=== PATIENT | male | born 1950 | race Caucasian/White ===

== ENCOUNTER 2017-12-02 12:13 | Day surgery (SDC) | payer MEDICARE, OTHER ==
[~2017-12-02] VITALS: Ht 185.4 cm; Wt 101.0 kg
[~2017-12-02 12:13] MED LIST: AMIO200 PO; ASPI81EC PO; AZIT250 PO; CENTRUM SILVER1 EAC2 PO; CHOL10002 PO; CIPR500 PO; CYAN1000I PO; CYCL10 PO; Cipro500 MG PO; DIGESTIVE ENZY1 EAC1 PO; FISH OIL 1,2001 EAC3 PO; FLEC100 PO; FLEC50 PO; Flagyl500 MG PO; HYDACE5 PO; LOSA50 PO; METR500 PO; MICROZIDE12.5 M1 PO; NADO40 PO; NADOLOL PO; OMEG1CAP30 PO; OXYACE5T PO; PRED20 PO; PROM25 PO; SERT100 PO; SERT50 PO; TAMS.4ER PO; TELM20 PO; TELM40 PO; TRAM50 PO; TRAZ100 PO; TRAZ50 PO; Tambocor100 MG PO; WARF2.5 PO; WARF5 PO; XARELTO20 MG PO
[2017-12-02] MEDS ORDERED: METO25ER PO (13:29)
[2017-12-02] MEDS ORDERED: CARV6.25 PO (13:30)
[2017-12-02 13:31] LABS: Anion Gap 5 mmol/L (6-16); Blood Urea Nitrogen 18 mg/dL (8-24); Bun/Creatinine Ratio 15.1 (12.0-20.0); CO2, Blood 29 mmol/L (21-32); Calcium, Blood 8.7 mg/dL (8.5-10.1); Chloride, Blood 107 mmol/L (98-108); Creatinine, Blood 1.19 mg/dL (0.60-1.20); Glomerular Filtration Rate >60 (60-); Glucose, Blood 97 mg/dL (70-99); Potassium, Blood 4.6 mmol/L (3.5-5.5); Sodium, Blood 141 mmol/L (136-145)
[2018-05-17] MEDS ORDERED: MAGOXI400 PO (15:53)
[2018-05-17] MEDS ORDERED: CYCL10 PO (15:53)
[2018-05-17] MEDS ORDERED: VITAL REDS (15:54)
== END 2017-12-02 23:13 | disposition home or self-care (01) ==
LOC: MHTC 12:13 → LAB 12:13 → MHTC 23:13
PROVIDERS: Internal Medicine Clinical Cardiac Electrophysiology
PROC: 5A2204Z Restoration of Cardiac Rhythm, Single (ICD-10-PCS; principal; 2017-12-02)
DX: I48.1 Persistent atrial fibrillation (principal); I10 Essential (primary) hypertension
CPT/HCPCS: 36415; 80048; 92960; 93005; 93010; 99152; J7030

== ENCOUNTER 2019-10-12 19:56 | Emergency (ER) | payer MEDICARE, OTHER ==
[~2019-10-12] VITALS: Ht 185.4 cm; Wt 97.5 kg
[~2019-10-12 19:56] MED LIST changes: +CARV6.25 PO; +MAGOXI400 PO; +METO25ER PO; +VITAL REDS
[2019-10-12] MEDS ORDERED: ACYC200 PO (20:04)
[2019-10-12 20:30] LABS: Calcium, Ionized (POC) 1.16 mmol/L (1.10-1.46); Chloride (POC) 102 mmol/L (98-108); Creatinine (POC) 1.4 mg/dL (0.8-1.3); Glucose (ISTAT POC) 96 mg/dL (70-99); Hemoglobin (POC) 13.3 g/dL (13.5-17.5); Potassium (POC) 4.2 mmol/L (3.5-5.5); Sodium (POC) 138 mmol/L (135-148); Total CO2 (POC) 27 mmol/L (21-32)
== END 2019-10-12 23:00 | disposition home or self-care (01) ==
LOC: ER 19:56
PROVIDERS: Physician Assistant
DX: B02.9 Zoster without complications (principal); I10 Essential (primary) hypertension; I48.91 Unspecified atrial fibrillation; F32.9 Major depressive disorder, single episode, unspecified; Z79.899 Other long term (current) drug therapy
CPT/HCPCS: 36415; 70487; 80047; 85014; 99284-25; A9270; J7120; Q9967

== ENCOUNTER → 2020-02-02 | Outpatient (CLI) | payer MEDICARE, OTHER ==
[~2020-02-02] MED LIST changes: +ACYC200 PO
[2020-02-02 14:47] LABS: Creatinine Urine 55.6 mg/dL (27.00-270.00); Protein, Urine Quantitative 15.6 mg/dL (0.0-11.9)
== END | disposition home or self-care (01) ==
LOC: LAB SHORT 07:00 → LAB 07:00 → LAB FUT 01-30 11:00
PROVIDERS: Internal Medicine Nephrology
DX: N18.3 Chronic kidney disease, stage 3 (moderate) (principal); D63.1 Anemia in chronic kidney disease; N25.81 Secondary hyperparathyroidism of renal origin; E55.9 Vitamin D deficiency, unspecified; E78.00 Pure hypercholesterolemia, unspecified; D51.8 Other vitamin B12 deficiency anemias; D52.8 Other folate deficiency anemias; D50.9 Iron deficiency anemia, unspecified; R76.9 Abnormal immunological finding in serum, unspecified; R94.5 Abnormal results of liver function studies; R94.6 Abnormal results of thyroid function studies; R73.09 Other abnormal glucose
CPT/HCPCS: 81050; 82043; 82570; 84156

== ENCOUNTER → 2020-07-15 | Outpatient (CLI) | payer MEDICARE, OTHER | LOC: LAB SHORT 09:22 → PLD 09:22 | DX: D48.5 Neoplasm of uncertain behavior of skin (principal) | CPT/HCPCS: 88305 ==